=== PATIENT | female | born 1985 | race Hispanic/Latino ===

== ENCOUNTER 2023-05-25 13:52 | Emergency (ER) | payer OTHER ==
[~2023-05-25] VITALS: Ht 162.6 cm; Wt 104.3 kg
[2023-05-25] MEDS ORDERED: IBUP-2070 PO (18:20)
[2023-05-25] MEDS ORDERED: CORTSOL AD (18:20)
[2023-05-25] MEDS ORDERED: CEFTRIAXONE 1G VIAL IM ONE (18:30)
[2023-05-25] MEDS ORDERED: HYDROCODONE/ACETAMINOPHEN 5/325 MG TAB PO ONE (18:30)
[2023-05-25] MEDS ORDERED: CLIN300C3 PO (22:09)
[2023-05-25 22:26] VITALS: BP 133/74; PULSE 80; RESP 16; O2SAT 100
== END 2023-05-25 22:28 | disposition home or self-care (01) ==
LOC: EDH 13:52
DX: H60.91 Unspecified otitis externa, right ear (principal); H66.91 Otitis media, unspecified, right ear; H92.01 Otalgia, right ear
CPT/HCPCS: 99285; 70480; 70130; 96372; J0696